=== PATIENT | male | born 2005 | race American Indian/Alaskan Native ===

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

== ENCOUNTER 2024-07-23 03:58 | Emergency (ER) | payer BC, MEDICAID ==
[2024-07-23] MEDS: Ondansetron 4 MG/2 ML SDV IVPUSH ONE (04:06)
[2024-07-23] MEDS: Morphine 4 MG/ML Syringe IVPUSH ONE (04:06)
[2024-07-23 04:10] LABS: BASOPHILS ABSOLUTE AUTO 0.15 K/uL (0.00-0.30); BASOPHILS PERCENT AUTO 1.1 % (0.0-1.0); EOSINOPHILS PERCENT AUTO 4.4 % (0.0-5.0); HEMATOCRIT 44.3 % (42.0-52.0); HEMOGLOBIN 15.4 g/dL (14.0-18.0); IMMATURE GRAN ABSOLUTE AUTO 0.26 K/uL (0.00-0.05); IMMATURE GRAN PERCENT AUTO 1.9 % (0.0-0.4); LYMPHOCYTES ABSOLUTE AUTO 5.48 K/uL (2.00-8.80); LYMPHOCYTES PERCENT AUTO 40.2 % (50.0-65.0); MEAN CORPUSCULAR HEMOGLOBIN 30.7 pg (28.0-32.0); MEAN CORPUSCULAR HGB CONC 34.8 g/dL (32.0-36.0); MEAN CORPUSCULAR VOLUME 88.4 fL (83.0-99.0); MONOCYTES ABSOLUTE AUTO 0.99 K/uL (0.10-1.40); MONOCYTES PERCENT AUTO 7.3 % (2.0-10.0); NEUTROPHILS ABSOLUTE AUTO 6.14 K/uL (1.50-8.50); NEUTROPHILS PERCENT AUTO 45.1 % (35.0-45.0); PLATELET COUNT,PLT 254 K/uL (150-400); RED BLOOD CELL COUNT 5.01 M/uL (4.52-5.90); WHITE BLOOD CELL COUNT,WBC 13.62 K/uL (4.5-13.5)
[2024-07-23 04:30] LABS: ALANINE AMINOTRANSFERASE,ALT 32 IU/L (14-63); ALBUMIN 3.6 g/dL (3.4-5.0); ALKALINE PHOSPHATASE 200 U/L (46-116); ASPARTATE AMNIOTRANSFERASE,AST 42 IU/L (15-37); BILIRUBIN TOTAL 0.2 mg/dL (0.2-1.0); BLOOD UREA NITROGEN,BUN 11 mg/dL (7.0-18.0); CALCIUM 8.6 mg/dL (8.5-10.1); CARBON DIOXIDE,CO2 25.6 mmol/L (21.0-32.0); CHLORIDE,CL 107 mmol/L (98-107); CREATININE 0.9 mg/dL (0.8-1.3); ETHANOL BLOOD MEDICAL 270 mg/dL; GLUCOSE RANDOM 146 mg/dL (74-106); POTASSIUM,K 3.9 mmol/L (3.5-5.1); PROTEIN TOTAL,TP 7.1 g/dL (6.4-8.2); SODIUM,NA 144 mmol/L (136-148)
[2024-07-23] MEDS: Iopamidol 755 MG/ML 500 ML Multipack Bottle IVPUSH ONE (04:37)
[2024-07-23 04:57] LABS: ESTIMATED GFR 126 mL/min (>60)
== END 2024-07-23 07:39 ==
LOC: MW.ED 03:58
DX: S72.301A Unspecified fracture of shaft of right femur, initial encounter for closed fracture (principal); V49.9XXA Car occupant (driver) (passenger) injured in unspecified traffic accident, initial encounter
CPT/HCPCS: 36415; 70450; 71045; 71260; 72125; 72170; 73551; 74177; 80053; 80307; 85025; 96374; 96375; 99285; J2270; J2405; Q9967; 99284